=== PATIENT | female | born 1970 | race Hispanic/Latino ===

== ENCOUNTER 2025-01-16 17:57 | Emergency (ER) | payer OTHER, SELFPAY ==
--- NOTE | ~2025-01-16 | XR_ITS ---
HISTORY: knee pain COMPARISON: None TECHNIQUE: 3 views of the right knee were performed FINDINGS: No acute or subacute fracture, erosion, lytic or sclerotic lesion. Medial and lateral tibiofemoral joint space narrowing is identified. Small suprapatellar joint effusion is identified. The infrapatellar joint space is clear. IMPRESSION: Suprapatellar joint effusion, without acute fracture, as detailed above. Reviewed, dictated and finalized at location A.
[2025-01-16 17:59] VITALS: BP 126/68; PULSE 107; RESP 16; TEMP 36.4; O2SAT 97
[2025-01-16] MEDS: ACETAMINOPHEN 500 MG TABLET 1000 MG PO (18:21)
[2025-01-16] MEDS: oxyCODONE HCL (*CRX) 5 MG TAB IR PO (18:22)
[2025-01-16] MEDS: KETOROLAC 30 MG/ML VIAL (*BKC) IM (18:23)
--- NOTE | 2025-01-16 18:28 | ED.GENADULT ---
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 She fell while at work landing on her right knee. At 1st he not have significant pain but then she developed increased swelling. She has pain when she walks. She has been taking naproxen with some relief. She does not have any weakness in the leg. She does not have any other injuries Related Data Allergies Allergy/AdvReac Type Severity Reaction Status Date / Time No Known Allergies Allergy Verified 01/16/25 18:20 Exam Narrative: APPEARANCE: No apparent distress. Head: atraumatic. EYES: EOMI, NOSE: Atraumatic NECK: Trachea midline RESPIRATORY: No increased rate of breathing CARDIOVASCULAR: RRR, ABDOMINAL: Non-distended MUSCULOSKELETAl: Focal exam of the right knee revealed a suprapatellar effusion. Some tenderness behind the knee. Pain at the extremes of flexion and extension. Patient is able to ambulate with an antalgic gait. NEURO: Alert. Moving 4/4 extremities SKIN:: Warm, dry. Normal color PSYCHIATRIC: Normal affect Course Vital Signs Vital signs: Vital Signs Temperature 97.6 F 01/16/25 17:59 Pulse Rate 107 H 01/16/25 17:59 Respiratory Rate 16 01/16/25 17:59 Blood Pressure 126/68 01/16/25 17:59 Pulse Oximetry 97 01/16/25 17:59 Oxygen Delivery Room Air 01/16/25 17:59 Temperature 97.6 F 01/16/25 17:59 Pulse Rate 107 H 01/16/25 17:59 Respiratory Rate 16 01/16/25 17:59 Blood Pressure 126/68 01/16/25 17:59 Pulse Oximetry 97 01/16/25 17:59 Oxygen Delivery Room Air 01/16/25 17:59 Medical Decision Making MDM Narrative Medical decision making narrative: -Course: 54-year-old female presenting with knee pain after a fall. X-rays negative for fracture but did show a suprapatellar effusion. Patient's pain was treated. She was placed in a wrap. She can follow-up with her primary care physician or orthopedic surgeon in 1 week. All questions answered. Patient discharged with return precautions. -DDX includes but is not limited to: Bony injury, soft tissue injury, knee effusion, internal derangement Vital Signs Vital Signs: Vital Signs Temperature 97.6 F 01/16/25 17:59 Pulse Rate 107 H 01/16/25 17:59 Respiratory Rate 16 01/16/25 17:59 Blood Pressure 126/68 01/16/25 17:59 Pulse Oximetry 97 01/16/25 17:59 Oxygen Delivery Room Air 01/16/25 17:59 Temperature 97.6 F 01/16/25 17:59 Pulse Rate 107 H 01/16/25 17:59 Respiratory Rate 16 01/16/25 17:59 Blood Pressure 126/68 01/16/25 17:59 Pulse Oximetry 97 01/16/25 17:59 Oxygen Delivery Room Air 01/16/25 17:59 Discharge Plan Discharge Clinical Impression: Acute knee pain Patient Disposition: Home Condition: Stable Instructions: Antibiotic Form, Knee Pain (ED) Additional Instructions: You were seen in the emergency department for knee pain. Please use Motrin, Tylenol, and Robaxin for your pain. Please follow-up with your primary care physician in 2 days if you are unable to go back to work. Please follow-up with the orthopedic surgeon listed below in 1 week if you are continuing to have knee pain. Return to the ED if you develop severe near pain or weakness your leg. Acudi? a urgencias por dolor de rodilla. [place] Motrin, Tylenol y Robaxin para el dolor. Si no puede volver al trabajo, consulte con benites m?dico de cabecera en 2 d?as. Si persiste el dolor de rodilla, consulte con el cirujano ortop?dico que se indica a continuaci?n en 1 semana. Regrese a urgencias si presenta dolor intenso cerca de la rodilla o debilidad en la pierna. Patient Language: Haitian Prescriptions: New ibuprofen 800 mg tablet 800 mg PO TID PRN (Reason: pain) 7 Days Qty: 21 0RF acetaminophen 500 mg tablet 1,000 mg PO TID PRN (Reason: no) 7 Days Qty: 42 0RF methocarbamol 750 mg tablet 1,500 mg PO TID Qty: 42 0RF Follow-up/Referrals: PHYSICIAN NOT ON STAFF,NONSTAFF [Primary Care Provider] - Javier Julien MD [Physician] - 2 Days (Knee pain ) Martin Walden MD [Physician] - 1 Week Stand Alone Forms: Work/School Release IP
--- OUTSIDE RECORDS SUMMARY | 2025-01-16 18:52 | XMS_ITS | Clinical Summary ---
Author Organization [facility] Address [facility] [place] [address] Care Team Providers Care Environmental Tech Name Role Phone Unavailable Primary Care Provider Unavailabl e Social History Tobacco Use Types Packs/Day Years Used Date Smoking Tobacco: Never Assessed Comments Unknown Sex and Gender Information Value Date Recorded Sex Assigned at Not on file Legal Sex Female 3:03 PM CDT Gender Identity Not on file Sexual Orientation Not on file Plan of Treatment Upcoming Encounters Date Type Department Care Team (Late st Contact Info) Description 02/16/2025 8:50 AM CDT Office Visit [facility] Family Medicine - [place] [address] [place] [id number] Nissa Mohr MD [address] [facility] [address] [place] [address] [id number] Health Maintenance Due Date Last Done Comments Cervical Cancer Screening Pa p Smear (Age 30 to 64) Every 3 Years 1970 Colorectal Cancer Screening Colonoscopy (10 Years) 1970 Annual Physical 1973 Hepatitis C 1988 DTaP, Tdap and Td Vaccines ( 1 - Tdap) 1989 Hepatitis B Vaccines (1 of 3 - 19+ 3-dose series) 1989 Cervical Cancer Screening Pa p with HPV Testing (Age 30 to 64) Every 5 Years 2000 Cervical Cancer Screening with HPV 2000 Mammogram Screening 2010 Pneumococcal Vaccine: 50+ Ye ars (1 of 1 - PCV) 2020 Zoster Vaccines (1 of 2) 2020 COVID-19 Vaccine ( - 2023-2 5 season) 2024 Meningococcal B Vaccine Aged Out No l onger eligible based on patient's age to complete this topic Meningococcal Vaccine Aged Out No esau ella eligible based on patient's age to complete this topic RSV Immunizations Under 20 Months Aged Out No longer eligible based on patient's age to complete this topic Insurance [facility]
== END 2025-01-16 18:59 | disposition home or self-care (01) ==
LOC: ANHED 18:50
PROVIDERS: Emergency Provider Emergency Medicine
DX: M25.561 Pain in right knee (principal); W19.XXXA Unspecified fall, initial encounter
CPT/HCPCS: 73562; 96372; 99283; A9270; J1885